=== PATIENT | female | born 1945 | race Caucasian/White ===

== ENCOUNTER → 2017-01-15 | Outpatient (CLI) | payer MEDICARE, OTHER ==
[~2017-01-15] MED LIST: ASPIR 8181 MG PO; ASPIRIN (CHILDR81 MG PO; ATIVAN 0.5MG0.5 MG PO; AUGMENTIN875 MG PO; BENADRYL25 MG PO; COLACE100 MG PO; COMBIVENT RESPIM4 GM INH; COUMADIN 4MG **4 MG PO; COZAAR100 MG PO; DECADRON4 MG PO; DELTASONE10 MG PO; DITROPAN XL10 MG PO; DITROPAN XL5 MG PO; FEOSOL325 MG PO; HYDRODIURIL25 MG PO; K-TAB 10MEQ10 MEQ PO; LEVOTHROID (SY88 MCG PO; LEXAPRO10 MG PO; LIPITOR80 MG PO; LOVENOX 8080 MG/0.8 SUB-Q; MEGARED OMEGA-1 EAC1 PO; MORPHINE 15MG I15 MG PO; MS CONTIN30 MG PO; NEURONTIN300 MG PO; NICODERM / HABIT7 MG TRANS; NICODERM/HABITR21 MG TRANS; NORCO 5-325 TA1 EACH PO; NORVASC5 MG PO; PERCOCET 5-3251 EACH PO; PRILOSEC20 MG PO; SENNA LAXATIVE1 EACH PO; TYLENOL325 MG PO; ULTRAM50 MG PO; WELLBUTRIN SR150 MG PO; XANAX0.25 MG PO
[2017-01-15 13:51] LABS: ALBUMIN 3.6 gm/dL (3.5-5.0); ANION GAP 11.9 (10.0-19.0); CALCIUM 9.4 mg/dL (8.5-10.5); CREATININE 1.6 mg/dL (0.5-1.1); PHOSPHORUS 3.3 mg/dL (2.5-4.9); POTASSIUM 3.9 mMol/L (3.7-5.1)
== END | disposition disaster alternative care site (69) ==
LOC: GOPD 01-07 → GRAD 12:51 → GOPD 13:00
PROVIDERS: Family Medicine
DX: R91.1 Solitary pulmonary nodule (principal)
CPT/HCPCS: J2001; J3010

== ENCOUNTER 2017-02-24 07:59 | Inpatient (IN) | payer MEDICARE, OTHER ==
[~2017-02-24] VITALS: Ht 154.9 cm; Wt 64.7 kg
--- NOTE | ~2017-02-24 | ENPV ---
Vascular Lower Extremities DVT Study Procedure Demographics Patient Name ANGEL JOHNSON Date of Study 02/24/2017 Patient Number [id number] Gender Female Date of 1945 Age 71 Visit Number [id number] Height Accession Number [id number] Weight Room Number G3222 BSA BMI Referring Angela Lawrence Interpreting Laura Cast Physician Physician Physician Ordering Physician Angela Rangel MD Supervisor [place] Phlebotomy Support Tech Marycruz Macias RDCS, RVT Al Khanna RVT, RDCS Conclusions Summary TECHNIQUE: The veins of the lower extremity on the left were evaluated from the groin to the ankle using sahu scale, compression, augmentation. Venous hemodynamics were evaluated with color flow and spectral Doppler. FINDINGS: Normal venous duplex study of the left lower extremity. There is no evidence of deep or superficial venous thrombosis. The right common femoral vein was imaged as well and found to be negative. IMPRESSION: NEGATIVE LEFT LOWER EXTREMITY VENOUS DOPPLER. Procedure Type of Study: Veins:Lower Extremities DVT Study, Lower Extremity Left. Indications for Study:Pain in Limb. Appropriate Use Criteria:9 Allergies - No known allergies. Patient Status:STAT. Study Location:ER. Technical Quality:Adequate visualization. Velocities are measured in cm/s ; Diameters are measured in cm Right Lower Extremities DVT Study Measurements Right 2D and Doppler Measurements + + + + +------+------+ + !Location !Visualized!Compressibility!Thrombosis!Signal!Reflux!Reflux ! ! ! ! ! ! ! !(sec) ! + + + + +------+------+ + !Common !Yes !Yes !None !Phasic! ! ! !Femoral ! ! ! ! ! ! ! + + + + +------+------+ + Left Lower Extremities DVT Study Measurements Left 2D and Doppler Measurements + + + + +------+------+ + !Location !Visualized!Compressibility!Thrombosis!Signal!Reflux!Reflux ! ! ! ! ! ! ! !(sec) ! + + + + +------+------+ + !GSV Thigh !Yes !Yes !None !Phasic! ! ! + + + + +------+------+ + !Common !Yes !Yes !None !Phasic! ! ! !Femoral ! ! ! ! ! ! ! + + + + +------+------+ + !Prox !Yes !Yes !None !Phasic! ! ! !Femoral ! ! ! ! ! ! ! + + + + +------+------+ + !Mid Femoral!Yes !Yes !None !Phasic! ! ! + + + + +------+------+ + !Dist !Yes !Yes !None !Phasic! ! ! !Femoral ! ! ! ! ! ! ! + + + + +------+------+ + !Popliteal !Yes !Yes !None !Phasic! ! ! + + + + +------+------+ + !Gastroc !Yes !Yes !None ! ! ! ! + + + + +------+------+ + !PTV !Yes !Yes !None ! ! ! ! + + + + +------+------+ + !Peroneal !Yes !Yes !None ! ! ! ! + + + + +------+------+ + Signature dtt: dtd: 02/24/17 0907 Physician Self Edit
--- NOTE | ~2017-02-24 | ER ---
PATIENT'S NAME: HAIM JOHNSONSY Tamanna [facility] AGE: 71 Y [address] ROOM: [place] [id number] LOCATION: [facility] ADMIT DATE: 02/24/2017 ER/Outpatient Report DISCHARGE DATE: FAMILY PHYSICIAN: Stefano Bain MD ATTENDING PHYSICIAN: Stefano Bain Time of Arrival: 0759 hours. Time of Evaluation: 0759 hours. IDENTIFICATION: A 71-year-old female. CHIEF COMPLAINT: Left leg pain. HISTORY OF PRESENT ILLNESS: The patient is a 71-year-old female, who has significant vascular disease. In June 2016, she had severe abdominal pain and was found to have a splenic infarct with celiac artery stenosis with no need for surgical intervention at that time, but she did have an interventional radiologist placed a stent in the celiac artery in September 2016 in [place]. She then had postop complications to include hematoma to the right lower extremity with a common femoral artery injury requiring repair. She has coronary artery disease with previous [place], hyperlipidemia, peripheral vascular disease, and hypertension. This particular leg pain started on February 02. No fall or injury. She has been seeing the chiropractor. She denies back pain. She denies bowel or bladder problems. She is vague on exactly where the pain hurts, but it is somewhere in her left thigh, radiates from her hip to her thigh. Again, no fall or injury. No numbness or tingling or weakness. ALLERGIES: NO KNOWN DRUG ALLERGIES. CURRENT MEDICATIONS: 1. Acetaminophen p.r.n. 2. Amlodipine 5 mg b.i.d. 3. Aspirin 81 mg daily. 4. Atorvastatin 80 mg daily. 5. Colace 100 mg t.i.d. 6. Combivent/Respimat 20/100 mcg 1 puff by mouth 4 times daily. 7. Hydrochlorothiazide 25 mg daily. 8. Levothyroxine 88 mcg daily. 9. Losartan 100 mg daily. 10. Nitroglycerin p.r.n. 11. Omeprazole 20 mg daily. [facility] 71 Y [address] ROOM: [address] [address] LOCATION: [facility] ADMIT DATE: 02/24/2017 ER/Outpatient Report DISCHARGE DATE: FAMILY PHYSICIAN: Stefano Bain MD ATTENDING PHYSICIAN: Stefano Bain 12. Oxybutynin 10 mg daily. 13. KCl 10 mEq 2 capsules daily. 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 PRIOR SURGERIES: Appendectomy, tonsillectomy, tubal ligation, colon resection, hernia repair, left knee surgery repair, right groin hematoma, and evacuation and repair of right femoral artery. SOCIAL HISTORY: The patient lives here in [place]. She is . Tobacco use, half pack per day. Alcohol use, denies. Drug use, denies. FAMILY HISTORY: Mother with diabetes. Sister with diabetes mellitus type 2. Father with heart disease. Uncle with heart disease. Mother with hypertension. REVIEW OF SYSTEMS: All systems reviewed and negative other than what is noted in the HPI. PHYSICAL EXAMINATION: VITAL SIGNS: Weight 68.9 kg, blood pressure 184/74, pulse 67, respirations 18, temperature 96.9, and saturations 98%. GENERAL: A 71-year-old female, in obvious distress with 10/10 pain. HEENT: Head: Normocephalic and atraumatic. Eyes: Pupils equal and reactive to light and accommodation. Extraocular movements intact. Nose: Mucosa pink. No lesions. Mouth: No lesions. Pharynx benign. NECK: Supple. No lymphadenopathy. LUNGS: Clear to auscultation. HEART: Regular rate and rhythm. ABDOMEN: Soft. Nondistended. Appears to be nontender. SKIN: [place], warm, and dry. No lesions or rashes noted. NEURO: No focal deficit. The patient is alert and oriented. She has no focal deficit. She has no tenderness to palpation of her hip or back. She has no reproducible tenderness on examination, although she is writhing with 10/10 pain. It seems to be pain out of proportion. She has good distal pulses. Sensation is intact. Both lower extremities are warm to touch. LABORATORY DATA AND X-RAYS: CT of her pelvis and left hip showed no acute findings, pending Radiology over- PATIENT'S NAME: ELIZABETH, ANGEL L [facility] AGE: 71 Y [address] ROOM: [address] [address] LOCATION: [facility] ADMIT DATE: 02/24/2017 ER/Outpatient Report DISCHARGE DATE: FAMILY PHYSICIAN: Stefano Bain MD ATTENDING PHYSICIAN: Stefano Bain read. Sodium 142; potassium 4.2; chloride 110; CO2 of 22; BUN 29; creatinine 1.6, which is stable; blood sugar 92; liver enzymes normal; CRP 0.81. Hemoglobin 13.2, hematocrit 40, platelets 339, and white count 8.7. Normal differential. Lactate is 1.3. Sedimentation rate 35. Procalcitonin less than 0.05. CT scan of abdomen and pelvis after given a 500 mL fluid bolus with her history of vascular disease revealed stable overall appearance. Lumbar spine CT without contrast showed degenerative changes at lumbar intervertebral levels, most pronounced at L5-S1 spinal stenosis with lateral recess and bilateral foraminal stenosis at L5-S1, borderline spinal stenosis at L3-L4 and L4-L5. The patient continued to have significant pain despite morphine 4 mg, Valium 1.5 mg, Dilaudid 0.25 mg, Percocet 5/325 one tablet, and an additional 2 mg of morphine. IMPRESSION: 1. Intractable left leg pain of uncertain etiology. 2. Peripheral vascular disease. 3. Spinal stenosis. PLAN: Admission per Dr. Bain, her primary care physician. KAHLIL PRINCE MD CAR/modl /[id number] d: 02/24/176 t: 02/25/17 1029, OUTPATIENT REPORT
--- NOTE | ~2017-02-24 | CON ---
PATIENT'S NAME: SHIVANI LEVIA [facility] AGE: 71 Y [address] ROOM: [address] [address] [place] [facility] ADMIT DATE: 02/24/2017 Consultation DISCHARGE DATE: FAMILY PHYSICIAN: Stefano Bain MD ATTENDING PHYSICIAN: Stefano Bain DATE OF CONSULTATION: 02/25/2017 CONSULT REQUESTED BY: Stefano Bain MD. REASON FOR CONSULT: Back and left leg pain. PATIENT IDENTIFICATION: Shivani Leiva is a 71-year-old female. PRESENTING COMPLAINT: Severe left leg pain. HISTORY OF PRESENT ILLNESS: The patient's symptoms began around the January. She had helped carry some luggage at the airport. The pain did not start immediately after that, but over the next several days, she started having left leg pain. The patient has been seen by chiropractor on two occasions without much improvement in the leg pain. She finally came to the ER and was admitted for pain control. I was consulted to see her to recommend further treatment. The pain goes down the left leg, and the patient is very uncomfortable in any position. She does not have significant back pain. It radiates on her right hip to her right thigh. There is no history of trauma other than the lifting at the airport three weeks ago. PAST MEDICAL HISTORY: The patient has a history of hypertension, gout, shingles, and non-small cell lung cancer recently diagnosed on February 08, 2017, biopsy pending. The patient also has peripheral vascular disease, tobacco abuse, and urinary incontinence. PAST SURGICAL HISTORY: The patient has had left knee repair surgery, colonic resection, tubal ligation, and appendectomy. SOCIAL HISTORY: PATIENT'S NAME: SHIVANI LEIVA [facility] AGE: 71 Y [address] ROOM: [address] [address] [place] [facility] ADMIT DATE: 02/24/2017 Consultation DISCHARGE DATE: FAMILY PHYSICIAN: Stefano Bain MD ATTENDING PHYSICIAN: Stefano Bain The patient lives here in town. She is . She smokes cigarettes, but does not consume alcohol in large amounts. FAMILY HISTORY: There is no family history of back or leg symptoms. REVIEW OF SYSTEMS: A 10-point review of systems was carried out. The only abnormal findings are as described in the history of present illness. PHYSICAL EXAMINATION: VITAL SIGNS: From chart, blood pressure 184/74, pulse rate 67. NEUROLOGIC: The patient is awake and alert. Her speech is clear. Cranial nerves: No deficits appreciated. Motor examination: The patient has antalgic weakness in the left leg making it very difficult to examine her. She was practically writhing in pain when I saw her. She has been on Dilaudid ESCORT SERVICE ATTENDANT, and this has improved some of the pain, but she is still quite anxious. CARDIOVASCULAR SYSTEM: Heart sounds are present. RESPIRATORY SYSTEM: The patient is not short of breath at bedside. EXTREMITIES: No cyanosis or clubbing. SKIN: No skin rashes or skin masses. HEAD: Head is atraumatic. Eyes and ears: No evidence of trauma. REVIEW OF IMAGING STUDIES: The patient had a CT lumbar spine before I saw her and after the initial evaluation, I requested a lumbar spine MRI. MRI was done this evening, and the main findings are degenerative changes, especially at L5-S1, asymmetric to the right-hand side. There is potential for impingement of the right S1 nerve root. There is also overall severe central canal stenosis at this level. IMPRESSION: A 71-year-old female with 3-week history of left leg pain. MRI shows spinal stenosis at L5-S1, greater on the right side than on the left side. The patient's pain is worse on the left side. MEDICAL DECISION MAKING: I discussed the situation with the patient and her . There is no indication for surgical intervention at this time because the patient has only had symptoms for about 3 weeks and we have not exhausted all nonsurgical measures as yet. It is also concerning that the side that has the worst stenosis, i.e., the right side is not the side where the patient has the most pain. Her pain is on the left side. Nevertheless, I have arranged for the patient to get lumbar epidural steroid injection. This will be performed by the nurse knife setter grinder machine tomorrow, February 26. If it is possible for the patient to go home after that, she will be released and I will follow her up in the PATIENT'S NAME: SHIVANI LEIVA [facility] AGE: 71 Y [address] ROOM: [place] [id number] [place]: [facility] ADMIT DATE: 02/24/2017 Consultation DISCHARGE DATE: FAMILY PHYSICIAN: Stefano Bain MD ATTENDING PHYSICIAN: Stefano Bain clinic to see how she is progressing. There is a very small chance that she may ultimately need surgery; however, it is too early at this point. PUJA HUDSON MD CNO/modl /[id number] CC: Stefano Bain MD d: 02/26/17 0120 t: 02/27/17 0911, CONSULTATION REPORT
[~2017-02-24 07:59] MED LIST changes: -DECADRON4 MG PO; -MORPHINE 15MG I15 MG PO; -MS CONTIN30 MG PO; -NEURONTIN300 MG PO; -PERCOCET 5-3251 EACH PO; -SENNA LAXATIVE1 EACH PO; -XANAX0.25 MG PO
[2017-02-24 08:33] LABS: BASOPHIL # 0.1 K/uL (0.0-0.2); BASOPHIL % 1.2 %; EOSINOPHIL # 0.5 K/uL (0.0-0.5); EOSINOPHIL % 5.2 %; HEMOGLOBIN 13.2 g/dL (10.0-15.0); IMMATURE GRANULOCYTE % 0.3 %; LYMPHOCYTE # 2.5 K/uL (0.8-4.0); LYMPHOCYTE % 28.7 %; MCH 29.9 pg (27.0-34.0); MCV 90.5 fl (83.0-98.0); MONOCYTE # 0.7 K/uL (0.0-1.0); MONOCYTE % 7.6 %; MPV 8.7 fl (9.4-12.4); NEUTROPHIL # (ANC) 4.9 K/uL (1.8-7.8); NRBC % 0 /100WBC (0-0.00); PLATELET COUNT 339 K/uL (150-450); RBC 4.42 M/uL (3.50-5.50); RDW-CV 12.9 % (11.9-14.6); WBC 8.7 K/uL (4.0-11.0)
[2017-02-24 08:53] LABS: ALBUMIN 3.8 gm/dL (3.5-5.0); ANION GAP 14.2 (10.0-19.0); CALCIUM 9.5 mg/dL (8.5-10.5); CREATININE 1.6 mg/dL (0.5-1.1); POTASSIUM 4.2 mMol/L (3.7-5.1); TOTAL BILIRUBIN 0.3 mg/dL (0.0-1.5); TOTAL PROTEIN 7.8 g/dL (6.0-8.4)
[2017-02-25 05:15] LABS: ANION GAP 12.2 (10.0-19.0); CALCIUM 8.7 mg/dL (8.5-10.5); CREATININE 1.5 mg/dL (0.5-1.1); POTASSIUM 4.2 mMol/L (3.7-5.1)
[2017-02-26] MEDS ORDERED: PERCOCET 5-3251 EACH PO (10:11)
[2017-02-26] MEDS ORDERED: XANAX0.25 MG PO (10:12)
== END 2017-02-26 17:20 | disposition disaster alternative care site (69) | DRG 552 ==
LOC: GMED 07:59 → GMSU 12:13
PROVIDERS: Family Medicine; ADMIT Family Medicine
PROC: 3E0233Z Introduction of Anti-inflammatory into Muscle, Percutaneous Approach (ICD-10-PCS; principal; 2017-02-26)
PROC: 3E023BZ Introduction of Anesthetic Agent into Muscle, Percutaneous Approach (ICD-10-PCS; 2017-02-26)
DX: M54.16 Radiculopathy, lumbar region (principal); J44.9 Chronic obstructive pulmonary disease, unspecified; I10 Essential (primary) hypertension; I25.10 Atherosclerotic heart disease of native coronary artery without angina pectoris; I25.2 Old myocardial infarction; E78.5 Hyperlipidemia, unspecified; I73.9 Peripheral vascular disease, unspecified; M10.9 Gout, unspecified; Z85.118 Personal history of other malignant neoplasm of bronchus and lung; F17.210 Nicotine dependence, cigarettes, uncomplicated; K27.9 Peptic ulcer, site unspecified, unspecified as acute or chronic, without hemorrhage or perforation
CPT/HCPCS: G0378; G8978; G8979; G8980; J1030; J1040; J1170; J2270; J2930; J3010; J3360; J7030; Q9967

== ENCOUNTER → 2017-03-05 | Outpatient (CLI) | payer MEDICARE, OTHER ==
[~2017-03-05] MED LIST changes: +DECADRON4 MG PO; +MORPHINE 15MG I15 MG PO; +MS CONTIN30 MG PO; +NEURONTIN300 MG PO; +PERCOCET 5-3251 EACH PO; +SENNA LAXATIVE1 EACH PO; +XANAX0.25 MG PO
== END | disposition disaster alternative care site (69) ==
LOC: GOPD 12:00 → GRAD 12:00
PROC: 3E0S33Z Introduction of Anti-inflammatory into Epidural Space, Percutaneous Approach (ICD-10-PCS; principal; 2017-03-05)
PROC: 3E0S3BZ Introduction of Anesthetic Agent into Epidural Space, Percutaneous Approach (ICD-10-PCS; 2017-03-05)
DX: M54.9 Dorsalgia, unspecified (principal); M48.06 Spinal stenosis, lumbar region; C34.90 Malignant neoplasm of unspecified part of unspecified bronchus or lung; I10 Essential (primary) hypertension; F17.210 Nicotine dependence, cigarettes, uncomplicated
CPT/HCPCS: J1040

== ENCOUNTER → 2017-03-30 | Outpatient (CLI) | payer MEDICARE, OTHER | END | disposition disaster alternative care site (69) | LOC: GKIC 11:29 | DX: C34.12 Malignant neoplasm of upper lobe, left bronchus or lung (principal); C10.4 Malignant neoplasm of branchial cleft; C34.2 Malignant neoplasm of middle lobe, bronchus or lung; C34.31 Malignant neoplasm of lower lobe, right bronchus or lung; C79.51 Secondary malignant neoplasm of bone; C78.01 Secondary malignant neoplasm of right lung; C78.1 Secondary malignant neoplasm of mediastinum; C79.89 Secondary malignant neoplasm of other specified sites; R91.8 Other nonspecific abnormal finding of lung field | CPT/HCPCS: A9552 ==

== ENCOUNTER → 2017-04-01 | Outpatient (CLI) | payer MEDICARE, OTHER | END | disposition disaster alternative care site (69) | LOC: GRAD 10:32 | DX: M79.652 Pain in left thigh (principal); C34.12 Malignant neoplasm of upper lobe, left bronchus or lung; M89.9 Disorder of bone, unspecified ==

== ENCOUNTER → 2017-04-08 | Outpatient (CLI) | payer MEDICARE, OTHER | END | disposition disaster alternative care site (69) | LOC: GRAD 12:06 | DX: C34.12 Malignant neoplasm of upper lobe, left bronchus or lung (principal); C79.51 Secondary malignant neoplasm of bone; C54.1 Malignant neoplasm of endometrium; C18.9 Malignant neoplasm of colon, unspecified; R22.0 Localized swelling, mass and lump, head; E87.6 Hypokalemia; E86.0 Dehydration | CPT/HCPCS: A9577 ==

== ENCOUNTER → 2017-04-30 | Outpatient (CLI) | payer MEDICARE, OTHER | END | disposition disaster alternative care site (69) | LOC: GRAD 15:17 | DX: C34.92 Malignant neoplasm of unspecified part of left bronchus or lung (principal); C79.31 Secondary malignant neoplasm of brain ==

== ENCOUNTER 2017-05-06 15:01 | Inpatient (IN) | payer MEDICARE, OTHER ==
[~2017-05-06] VITALS: Ht 154.9 cm; Wt 60.2 kg
--- NOTE | ~2017-05-06 | ER ---
PATIENT'S NAME: ANGEL JOHNSON [facility] AGE: 71 Y [address] ROOM: [place] [address] LOCATION: [facility] ADMIT DATE: 05/06/2017 ER/Outpatient Report DISCHARGE DATE: FAMILY PHYSICIAN: Stefano Bain MD ATTENDING PHYSICIAN: PATIENCE BRYANT TIME OF ARRIVAL: 1502 hours. TIME OF EVALUATION: 1502 hours. CHIEF COMPLAINT: Weakness. HISTORY OF PRESENT ILLNESS: The patient is a 71-year-old female who presents to the emergency department today with a chief complaint of weakness and cough. She reports this started 3 days prior to arrival. The patient is accompanied by her daughter and . The patient reports she has had a nonproductive cough for about 3 days that has progressively worsened. Her family reports that she had refused to go to the hospital until very recently. Denies any fevers or chills. No nausea or vomiting. No diarrhea or constipation. The patient does have some bright red blood from an external hemorrhoid noted by . He does report it is a small amount. The patient does have non-small cell cancer with metastasis and has been undergoing radiation therapy to her leg. She does complain of pain all over. She does have chronic pain from these metastases. Pain is currently sharp. It is 8/10 in severity. The family does report that the patient had a good day Thursday and has just gone downhill since. 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 PAST SURGICAL HISTORY: Colon resection, knee, appendectomy, tonsillectomy, celiac artery, colostomy, stent to the celiac artery, multiple hernia repairs, and tubal ligation. SOCIAL HISTORY: The patient had smoked for about 40 years, approximately half a pack a day. Denies any alcohol or illicit drug use. She is . PATIENT'S NAME: HAIM JOHNSONSY Tamanna [facility] AGE: 71 Y [address] ROOM: [place] [address] LOCATION: [facility] ADMIT DATE: 05/06/2017 ER/Outpatient Report DISCHARGE DATE: FAMILY PHYSICIAN: Stefano Bain MD ATTENDING PHYSICIAN: PATIENCE BRYANT FAMILY HISTORY: Stroke, hypertension, and COPD. ALLERGIES: NO KNOWN DRUG ALLERGIES. CODEINE CAUSES VOMITING. MEDICATIONS: Please see list. REVIEW OF SYSTEMS: All systems are reviewed by myself and are negative with the exception of those discussed in the HPI and Past Medical History. PHYSICAL EXAMINATION: VITAL SIGNS: Weight 59.4 kg. Blood pressure 97/54, pulse 117, respiratory rate 18, temperature 100.3, and oxygen saturation 87% on 4 L nasal cannula. GENERAL: The patient is a 71-year-old female, appears stated age, in acute respiratory distress. HEENT: Head is normocephalic and atraumatic. Pupils are equal, round, and reactive to light and accommodating. Mucous membranes are dry. NECK: Supple. There is no nuchal rigidity. CARDIOVASCULAR: Tachycardic. No murmurs, rubs, or gallops. LUNGS: Coarse breath sounds bilaterally. Tachypnea. In moderate respiratory distress. ABDOMEN: Soft, nontender, and nondistended. No rebound, rigidity, or guarding. MUSCULOSKELETAL: The patient moves all 4 extremities. SKIN: Warm and dry. LABORATORY AND X-RAY DATA: EKG was obtained, is interpreted by myself at 1510 hours. It shows sinus tachycardia with a rate of 112, normal axis, normal interval. No obvious ST elevation, ST depression, or Q-wave inversions. CBC: White blood cell count 3.2 and platelets 101. Otherwise, unremarkable. Venous blood gas 7.32/36/73/19/-6.9. Lactate is 3.5. Coags are normal. Chest x-ray shows a right lower lobe opacity. CMP remarkable for chloride of 112, CO2 of 18, BUN 89, creatinine 2.9, and glucose 133. Alkaline phosphatase 111, AST is 723, and ALT is 756. CK is 240, CK-MB is 6.1, and troponin 0.1. ProBNP is 9968. D-dimer is 13. Procalcitonin is 12.5. IMPRESSION: 1. Septic shock due to community-acquired pneumonia. 2. Acute hypoxic respiratory failure due to pneumonia and non-small cell cancer of the lung. 3. Acute renal failure. PATIENT'S NAME: ANGEL JOHNSON [facility] AGE: 71 Y [address] ROOM: [address] [place], [place] [address] LOCATION: [facility] ADMIT DATE: 05/06/2017 ER/Outpatient Report DISCHARGE DATE: FAMILY PHYSICIAN: Stefano Bain MD ATTENDING PHYSICIAN: PATIENCE BRYANT 4. History of venous thromboembolism and elevated D-dimer. 5. Elevated liver enzymes. 6. Elevated troponin, suspect secondary to septic shock due to community- acquired pneumonia. 7. Elevated proBNP. 8. Sepsis time zero 1523 hours. 9. Critical care time 48 minutes. 10. Initial visit. EMERGENCY DEPARTMENT COURSE: The patient was brought back to the examination room. Seen immediately upon arrival by myself. Bilateral IVs are obtained. The patient is undergoing a nebulized breathing treatment upon arrival here in the emergency department. The patient is placed on BiPAP 12/5. FiO2 is at 100%. Apparently, the patient's initial saturations were in the 70s, noted by EMS. On 4 L nasal cannula, the patient is 85% to 86%. Upon placement of the BiPAP and 100% FiO2, the patient is saturating 98%. Laboratory analysis and imaging are obtained as described above. The patient is given 2 DuoNeb breathing treatments back to back in line with the BiPAP. Chest x-ray does reveal evidence of pneumonia. The patient is given 2 L of normal saline IV bolus. She is initiated on broad-spectrum antibiotics, Zosyn IV as well as Levaquin and vancomycin. The patient's blood pressures remained marginal throughout that time. I did discuss the case with Dr. Hayley Wiggins, who is on-call for the patient's primary care doctor, Dr. Bain, and discussed the case with her. She will see the patient as well, but as the patient has had marginal blood pressures, she will require ICU admission. I have contacted the Hospitalist Service, Dr. Bryant, and discussed the case with Dr. Bryant. She has seen and evaluated the patient down here in the emergency department. We have had a discussion with the patient's daughter and about central line placement. They do wish to proceed. The risks and benefits are discussed with the daughter and . Verbal consent is obtained due to the severity of the patient's illness. Central line was placed by myself. Prep: The patient's right internal jugular was prepped and draped in the usual sterile fashion. Anesthesia 1% lidocaine without epinephrine was used for local infiltration. Technique: A triple-lumen central line was introduced over a wire via the Seldinger technique and was sutured into place. There was no pulsatile blood flow noted. There was good blood flow from all the ports. Blood loss was minimal. Chest x-ray was ordered to assess for pneumothorax and catheter placement. These were appropriate, and no evidence of pneumothorax was noted. Complications: None. The patient's family does report that the patient is a do not resuscitate/do not intubate patient. She is maintained on BiPAP. Her FiO2 is weaned down to the 70% range with oxygen saturation 95% to 98%. The laboratory analysis is reviewed with both the patient and her and daughter. The patient is initially fluid responsive and has maintained her blood pressures; however, they are trending PATIENT'S NAME: ANGEL JOHNSON [facility] AGE: 71 Y [address] ROOM: [address] [address] LOCATION: [facility] ADMIT DATE: 05/06/2017 ER/Outpatient Report DISCHARGE DATE: FAMILY PHYSICIAN: Stefano Bain MD ATTENDING PHYSICIAN: PATIENCE BRYANT. She is initiated on Levophed drip. This is to titrate to a MAP of 65. She was given 25 mcg of fentanyl IV for her pain. The patient did require a cumulative critical care time of 48 minutes. This is time that does not include central line placement. This time did include talking with family about the family's wishes as well as management plans, talking with multiple consultants, ordering tests, reviewing tests, as well as close monitoring of the patient with septic shock requiring multiple re-evaluations, multiple discussions with family, and multiple different antibiotics. Levophed was ordered to keep MAP greater than 65. The patient was in the emergency department for greater than 3-1/2 hours. DISPOSITION: The patient is admitted under the care of the Hospitalist Service and Dr. Bryant to the intensive care unit in guarded condition. DO JERSON OCHOA/modl /[id number] d: 05/07/17 1154 t: 05/07/17 1439, OUTPATIENT REPORT
--- NOTE | ~2017-05-06 | CON ---
PATIENT'S NAME: ANGEL JOHNSON [facility] AGE: 71 Y [address] ROOM: [place] [id number] LOCATION: [facility] [place] ADMIT DATE: 05/06/2017 Consultation DISCHARGE DATE: FAMILY PHYSICIAN: Stefano Bain MD ATTENDING PHYSICIAN: PATIENCE BRYANT DATE OF CONSULTATION: 05/07/2017 REFERRING PHYSICIAN: Patience Bryant MD REASON FOR CONSULT: Rectal wounds. HISTORY OF PRESENT ILLNESS: This is a 71-year-old female patient who was admitted to [facility] [place] with severe sepsis. I saw the patient last in December for a right groin wound. 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 She had been undergoing radiation to her left femur. She has not had any chemotherapy agents for her lung cancer. She notes pain to her rectum. She is unable to tell me how long she has had the ulcers. No treatment was applied to site. She is not incontinent of urine or stool. She is on BiPAP treatment and appears very restless and anxious. She does remember who I am. She denies further skin issues. She reports she just received some morphine; however, is still complaining of generalized pain. She is currently n.p.o. PAST MEDICAL HISTORY: 1. Peripheral vascular disease. 2. Ileus. 3. Gout. 4. Hypertension. 5. Hel-wjfpn-uoxi lung cancer with metastases to brain and bone. 6. Coronary artery disease. 7. Hypothyroidism. 8. Depression. 9. Acute blood loss anemia. 10. Osteoarthritis. 11. Diverticulitis. PAST SURGICAL HISTORY: 1. Appendectomy. 2. Tonsillectomy. 3. Tubal ligation. 4. Colon resection. 5. Hernia repair. PATIENT'S NAME: ANGEL JOHNSON [facility] AGE: 71 Y [address] ROOM: [place] [address] LOCATION: [facility] [place] ADMIT DATE: 05/06/2017 Consultation DISCHARGE DATE: FAMILY PHYSICIAN: Stefano Bain MD ATTENDING PHYSICIAN: PATIENCE BRYANT 6. Left knee arthroplasty x2. 7. Evacuation of a hematoma to the right groin with repair of a puncture to the right common femoral artery. FAMILY HISTORY: Father of an [place]. Mother suffered from CHF. SOCIAL HISTORY: The patient lives with her in [place], [place]. She quit smoking in September 2016. ALLERGIES: CODEINE. CURRENT MEDICATIONS: Please refer to the medication administration record. REVIEW OF SYSTEMS: Unable to fully complete due to the acuity of illness and patient trying to fight the BiPAP. Please see HPI for further details. PHYSICAL EXAMINATION: VITAL SIGNS: Temperature was 99.1, pulse was 72, respirations were 19, blood pressure was 132/64, and pulse oximetry was 94% on BiPAP. Height is 5 feet 1 inch and weight is 60.0 kg. GENERAL: The patient appears anxious and in slight distress once her BiPAP is off. HEENT: Normocephalic and atraumatic. Anicteric sclerae. EXTREMITIES: No edema was. Feet were slightly cool to touch. +1 thready pedal pulses at best. Toenails are painted, unable to perform capillary refill. SKIN: Rectal ulcers were noted from the 3 o'clock to 9 o'clock area around her anus. Ulcers are moist pink. They have a linear cluster pattern. No vesicles. Blanchable redness to periwound. Small serous exudate. Very painful to touch. LABORATORY DATA: White blood cell count was 3.3, hemoglobin was 10.8, hematocrit was 32.9, and platelets were 60. Sodium of 143, potassium of 4.6, chloride of 117, bicarb of 16, BUN of 75, creatinine of 2.3, glucose of 141, and albumin of 1.9. TSH was 5.900. CPK is 254, CK-MB is 6.2, and troponin I is 0.113. Procalcitonin was 31.47. ASSESSMENT AND PLAN: Again, this is a 71-year-old female patient who was admitted to [facility] PATIENT'S NAME: ANGEL JOHNSON [facility] AGE: 71 Y [address] ROOM: [address] [address] LOCATION: [facility] [place] ADMIT DATE: 05/06/2017 Consultation DISCHARGE DATE: FAMILY PHYSICIAN: Stefano Bain MD ATTENDING PHYSICIAN: [facility] with severe sepsis and pneumonia. Wound Care consult to evaluate rectal wounds. 1. Rectal wounds. Possible concern for herpes zoster. The patient does have a history of chicken pox. She notes she received the shingles vaccine. She notes extreme pain to the site. She is unable to tell me about the clinical course or when symptoms started. No treatment is being applied to the site. Palliative Care is in the room and family is requesting conservative measures. No treatment is needed at this time. I briefly updated Dr. Schneider. 2. Severe sepsis with shock. Hospitalist is managing. 3. Acute respiratory failure with hypoxia, likely related to pneumonia secondary to kkp-ftcib-aypb lung cancer. Pulmonology is on board. 4. Acute renal failure. I would like to thank Dr. Bryant for this consult. Unfortunately, this appears to be a patient with a poor clinical course and outcome. RICO SMITH APRN FOR MD THERESE FLOWERS/modl /[id number] d: 05/07/172018 t: 05/16/17 1301, CONSULTATION REPORT
--- NOTE | ~2017-05-06 | DS ---
PATIENT'S NAME: ANGEL JOHNSON [facility] AGE: 71 Y [address] ROOM: [address] [address] LOCATION: [facility] [place] ADMIT DATE: 05/06/2017 Discharge Summary DISCHARGE DATE: 05/09/2017 FAMILY PHYSICIAN: Stefano Bain MD ATTENDING PHYSICIAN: Beverly Bryant FINAL DIAGNOSES: 1. Gram-negative septic shock. 2. Acute hypoxic respiratory failure. 3. Acute kidney injury. 4. Omt-dsuia-ofnz lung cancer, stage IV. HOSPITAL COURSE: The patient presented to the Emergency Room with chief complaints of being weak and cough. Her symptoms had started three days prior to admission. In the Emergency Room, she was found to be septic. She was initiated on IV antibiotics, and she did require BiPAP. She was subsequently admitted into the Intensive Care Unit, where the safety patrol officer was asked to see her as well as Cardiology. She was given aggressive IV hydration. She was started on IV Zosyn, IV Levaquin, and was given vancomycin. An echocardiogram was obtained. The second morning after admission, the patient with her and daughter present, did relate to me that she would want to go comfort measures. All of her medications were stopped. She was initiated on the comfort care order set, which included medications for secretion, pain, and air hunger. She was started on a morphine TEMPERATURE LOGGING OPERATOR to keep her pain under control. She was moved out of the Intensive Care Unit into the Medical Surgical Unit. As it was necessary, her morphine was elevated. She did pass on May 09, 2017. SANDRA STRICKLAND MD LAW/modl /[id number] d: 06/04/177 t: 06/17/17 1105, DISCHARGE SUMMARY
--- NOTE | ~2017-05-06 | CON ---
PATIENT'S NAME: ANGEL JOHNSON [facility] AGE: 71 Y [address] ROOM: [address] [address] LOCATION: [facility] [place] ADMIT DATE: 05/06/2017 Consultation DISCHARGE DATE: FAMILY PHYSICIAN: Stefano Bain MD ATTENDING PHYSICIAN: PATIENCE SWIFT DATE OF CONSULTATION: 05/07/2017 REASON FOR CARDIOLOGY CONSULT: Elevated cardiac enzymes. HISTORY OF PRESENT ILLNESS: This is a 71-year-old female who recently has been diagnosed with non-small cell lung cancer with noted brain and bone metastases. She has been undergoing radiation therapy to her left femur for palliative pain management and there were plans to proceed with brain radiation within this next week. She was brought to the emergency department by her daughter for complaints of cough and shortness of breath. Of note, the patient is a DNR/DNI and wants to know of invasive treatments at this time, but she did agree to BiPAP. At the time of this consult, she is resting in the intensive care unit on BiPAP. She is difficult to arouse, but will awaken to stimuli. Once again, does go back to sleep quickly. History is reviewed from chart evaluation as well as speaking with the patient's daughter. 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 She was subsequently started on heparin drip, but was unable to undergo a CT for PE evaluation due to her renal function as well as a V/Q scan not being able to be completed due to her lung tumor. There are plans to perform a noncontrast chest CT today to evaluate her lung tumor as it appears larger on chest x-ray than previously. No noted history of complaints of chest pain. She does have a history of previous catheterization with noted nonobstructive coronary artery disease. PAST MEDICAL HISTORY: As listed in the HPI as well as hypertension, gout, hypothyroidism, and history of a right thigh hematoma after a laceration of the right femoral artery. PAST SURGICAL HISTORY: 1. Stenting to the celiac artery in 2016. 2. Multiple hernia repairs. 3. Tubal ligation. 4. Appendectomy. 5. Colostomy after a colon perforation 15 years ago secondary to diverticular disease. [facility] 71 Y [address] ROOM: [id number] [place], [place] [address] LOCATION: [facility] [place] ADMIT DATE: 05/06/2017 Consultation DISCHARGE DATE: FAMILY PHYSICIAN: Stefano Bain MD ATTENDING PHYSICIAN: PATIENCE SWIFT FAMILY HISTORY: The patient's mother at age of 82 due to a stroke. Her mother also had a history of hypertension. Her father is assumed to have due to myocardial infarction at a young age. She has 3 sisters, all of whom have due to COPD. SOCIAL HISTORY: The patient was a current daily cigarette smoker up until a few weeks ago. She smoked for a total of 40 years and a half a pack per day during those times. No notation of alcohol or illicit drug use. CURRENT MEDICATIONS: 1. Levophed drip and vasopressin drip for hypotension. 2. Heparin drip per PE protocol. 3. NovoLog subcu on a mild sliding scale per q.6 hour Accu-Cheks. 4. Vancomycin 750 mg IV every 48 hours. 5. Zosyn 3.375 g IV every 12 hours. MEDICATION ALLERGIES: Codeine causing nausea. REVIEW OF SYSTEMS: Pertinent positive review of systems listed in the HPI. All other review of systems are evaluated and negative. DIAGNOSTICS: Echocardiogram shows an estimated left ventricular ejection fraction of 60% to 65%. There is a mildly dilated left atrium with normal right ventricular structure and function. Mild pulmonary hypertension with an RVSP of 46 mmHg and mild tricuspid regurgitation. She has a D-dimer level of 13.28 and a procalcitonin of 31.47. CMS evaluation shows a sodium of 143, potassium 4.6, BUN of 75, creatinine 2.3, and a glucose of 141. ABG result shows a pH of 7.25, pCO2 of 38, and a bicarb of 16.7. She had a lactate level of 1.9. She has a cardiac enzyme trend so far of a CPK of 240, then 312, then 249; CK-MB of 6.1, then 6.1, then 5.5; and troponin I of 0.1, then 0.219, then 0.188. PHYSICAL EXAMINATION: VITAL SIGNS: Temperature 99.1, pulse 72, respirations 19, blood pressure 132/64, O2 saturation 92% on 40% BiPAP. The patient weighs 60 kg. SKIN: [place], warm, and dry except for some minor scattered ecchymosis. EYES: Sclerae clear. No xanthelasma. ENT: Oral mucosa is pink and moist. No jugular vein distention or carotid bruits. PATIENT'S NAME: ANGEL JOHNSON [facility] AGE: 71 Y [address] ROOM: [place] [address] LOCATION: [facility] [place] ADMIT DATE: 05/06/2017 Consultation DISCHARGE DATE: FAMILY PHYSICIAN: Stefano Bain MD ATTENDING PHYSICIAN: PATIENCE SWIFT CHEST: Respirations are even but labored. LUNGS: Sounds show coarse crackles throughout lung juarez. HEART: Regular rate and rhythm. Normal S1 and S2. ABDOMEN: Soft to mildly firm. Bowel sounds are present x4 quadrants. MUSCULOSKELETAL: Unable to fully assess due to the patient's inability to follow commands for an extended period of time due to lethargy. EXTREMITIES: Peripheral pulses palpable. No clubbing or cyanosis noted. Does have trace lower extremity edema present. PSYCHIATRIC: Lethargic and difficult to arouse, but will open eyes to stimulus. IMPRESSION AND PLAN: Per Dr. García: 1. Niv-XO-cmflwcow myocardial infarction. Likely due to supply-demand mismatch. Her echocardiogram shows a preserved ejection fraction. 2. Metastatic lung cancer. 3. Gram-negative sepsis. 4. Congestive heart failure. 5. Acute hypoxic respiratory failure. 6. Thrombocytopenia. 7. Acute kidney injury. Plan of care discussed with Dr. Schneider of the Hospitalist Service and plan is to proceed with comfort cares for this patient. We do thank the Hospitalist Service for this consult and will be available for any further questions or concerns. Thank you for allowing [facility] to interact in the care of this patient. JOSH GUADALUPE APRN FOR PANCLAUDIOOTIS-MD YELENA CONDE/kristy /[id number] d: 05/07/17 2209 t: 05/19/17 0820, CONSULTATION REPORT
--- NOTE | ~2017-05-06 | ECHO ---
Transthoracic Echocardiography Report (TTE) Demographics Patient Name ANGEL JOHNSON Date of Study 05/07/2017 Patient Number [id number] Visit Number [id number] Date of 1945 Room Number G6215 Gender Female Number Age 71 year(s) Referring Manny Paul MD Endodontics Dentist Lupis López, Physician RT,RVT,RDCS Physician Interpreting Raquel Sanders Insurance Agency Sales Manager Physician A Supervising Ordering Manny Paul MD, MD/MLP Physician Nurse Stress Tool Specialist Conclusions Contractility Score Summary Normal Left Ventricular contractility was noted. Summary The estimated left ventricular ejection fraction is 60-65%. The left atrium is mildly dilated by LA volume index measurement. Normal right ventricle structure and function. There is mild pulmonary hypertension. The pulmonary pressure (RVSP) is 46 mmHg. Mild tricuspid regurgitation by color Doppler. Procedure Type of Study TTE procedure:2D Echocardiogram, M-Mode, Doppler , Color Doppler. Procedure Date Date: 05/07/2017 Start: 07:14 AM Study Location: Inpatient Portable Technical Quality: Adequate visualization Indications:Dyspnea/SOB. Additional Indications:Pneumonia, severe sepsis. Appropriate Use Criteria: 9 Patient Status: Routine HR: 77 bpm BP: 121/61 mmHg Allergies - No known allergies. M-Mode/2D Measurements LV Diastolic Dimension: 4.85 cm LV Systolic Dimension: 3.03 cm LV Septum Diastolic: 0.92 cm LV Septum Systolic: 1.54 cm LV PW Diastolic: 0.98 cm LV PW Systolic: 1.47 cm Cardiac Output: 6.24 l/min AO Root Dimension: 2.9 cm RV Diastolic Dimension: 2.17 cm LA Dimension: 3.2 cm EF Estimated: 70 % LA volume: 48 ml LVOT: 2.1 cm LVOT VTI: 23.4 cm LV Stroke volume: 81.01 ml Doppler Measurements AV Peak Velocity: 1.33 m/s MV Peak E-Wave: 0.89 m/s AV Peak Gradient: 7.08 mmHg MV Peak A-Wave: 1.07 m/s AV Mean Gradient: 3 mmHg MV E/A Ratio: 0.83 LVOT Peak Velocity: 1.17 m/s MV P1/2t: 52 msec TR Gradient:36.48 mmHg PV Peak Velocity: 0.7 m/s Estimated RAP:10 mmHg PV Peak Gradient: 1.98 mmHg Estimated RVSP: 46 mmHg Estimated PASP: 46.48 mmHg E' Septal Velocity: 0.07 m/s A' Septal Velocity: 0.09 m/s MV E/E' Ratio: 13.5 Findings Left Ventricle Normal left ventricle size and function. Possible mild septal hypokinesis Right Ventricle Normal right ventricle structure and function. Left Atrium The left atrium is mildly dilated by LA volume index measurement. Right Atrium Normal right atrial size. Mitral Valve Normal mitral valve structure and function. Aortic Valve Normal aortic valve structure and function. Tricuspid Valve There is mild pulmonary hypertension. The pulmonary pressure (RVSP) is 46 mmHg. Mild tricuspid regurgitation by color Doppler. Pulmonic Valve Normal pulmonic valve structure and function. Pericardial Effusion No evidence of pericardial effusion. Miscellaneous Visualized portions of the aortic root and ascending aorta appear normal in size. Pleural Effusion No evidence of pleural effusion. Contractility Score LV regional wall motion:(0-Non visualized 1-Normal 2-Hypokinesis 3-Akinesis 4-Dyskinesis 5-Aneurysm) Signature dtt: Simone García dtd: 05/07/17 0714 Physician Self Edit
--- NOTE | ~2017-05-06 | HP ---
PATIENT'S NAME: ANGEL LEIVA [facility] AGE: 71 Y [address] ROOM: [address] [place], [place] [address] LOCATION: [facility] ADMIT DATE: 05/06/2017 History & Physical DISCHARGE DATE: FAMILY PHYSICIAN: Stefano Bain MD ATTENDING PHYSICIAN: PATIENCE SWIFT DATE OF SERVICE: 05/06/2017 CHIEF COMPLAINT: Generalized weakness and cough. HISTORY OF PRESENT ILLNESS: Ms. Leiva is a 71-year-old female, who was diagnosed with non- small cell lung cancer by biopsy on 01/16/2017. She was subsequently found to have brain and bone metastases. The metastasis to the left femur has been particularly painful, and she has been undergoing radiation to this. She has not had any other chemotherapy or other treatments yet for the lung cancer. She had been tending toward less intervention and in fact, did not want to come to hospital today but is brought by her . Over the past week, she has had severe pain in the leg causing increasingly poor appetite adding to the problem with weight loss that she has had. She developed cough and was brought to the emergency room today. On arrival she did have increased respiratory rate, increased heart rate. She was afebrile. When her labs were returned, she had multiple abnormalities including leukopenia, elevated lactate and procalcitonin, elevated BUN and creatinine, elevated liver functions, elevated troponin. I was notified by the ER physician. He was concerned that the patient may not even want to have a central line placed, so we could adequately treat what appears to be severe sepsis. I spoke at length, obtained history from the family members, who were at the bedside in the emergency room which was Mr. Francois Leiva, her , and her daughter, Akiko Taylor. Although the patient does not want to be intubated and does not want to be resuscitated, and she agreed to central line placement and attempts to treat this acute sepsis episode. Dr. Elmore, her oncologist also gave some history verbally to me by phone. The patient was started on broad-spectrum antibiotics according to the sepsis protocol and had a stable blood pressure in the systolic above 100 prior to leaving the ER. She was admitted to the ICU for further evaluation and management. PAST MEDICAL HISTORY: 1. She had an ileus on January 21, 2017, was hospitalized and treated for that. She had a history of colon perforation 15 years ago secondary to PATIENT'S NAME: ANGEL LEIVA [facility] AGE: 71 Y [address] ROOM: [id number] [place], [place] [address] LOCATION: [facility] ADMIT DATE: 05/06/2017 History & Physical DISCHARGE DATE: FAMILY PHYSICIAN: Stefano Bain MD ATTENDING PHYSICIAN: PATIENCE SWIFT severe diverticular disease and had large colon resection at that time. 2. 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 Her daughter thinks that she did have an CA with mild coronary artery disease, somewhere in the last several years, it is not exactly clear. Apparently Dr. Bates catheterized her several years ago showing nonobstructive cardiac disease and those records are unavailable at this time. 3. Gout. 4. Hypertension. 5. Urinary incontinence. 6. Central canal stenosis at the level of L5-S1 diagnosed in February 2017. 7. Right thigh hematoma status post laceration of the right femoral artery. 8. Hypothyroidism. PAST SURGICAL HISTORY: 1. Jeremías's patch with diverting colostomy which was closed in the distant past. 2. Stent to the celiac artery on 09/29/2016. 3. Multiple hernia repair. 4. Status post abdominal surgery. 5. She had steroid injection to the lumbar spine in February 2017. 6. She has had tubal ligation. 7. Appendectomy. SOCIAL HISTORY: She is for 20 years to Mr. Leiva. She has three children from previous marriage, two sons and her daughter. She is retired. She smokes 4-5 cigarettes a day up until a couple weeks ago. She smoked for about 40 years, always less than half pack a day. Her is her medical power-of- contract attorney. It should be in her medical record. She does wish to be no CPR and no intubation. FAMILY HISTORY: Her mother at age 82 of a stroke. She had a history of hypertension. Her father at a young age, presumably CA. She has had 3 sisters, who of COPD but not cancer. ALLERGIES: NO TRUE ALLERGIES TO ANTIBIOTICS. SHE DOES HAVE AN ADVERSE REACTION TO CODEINE WHICH IS SEVERE VOMITING. MEDICATIONS: 1. Tylenol 325 mg 2 tabs every 4 hours p.r.n. pain. 2. Amlodipine 5 mg p.o. b.i.d. 3. Lipitor 80 mg p.o. daily. PATIENT'S NAME: ANGEL LEIVA [facility] AGE: 71 Y [address] ROOM: [place] [address] LOCATION: [facility] ADMIT DATE: 05/06/2017 History & Physical DISCHARGE DATE: FAMILY PHYSICIAN: Stefano Bain MD ATTENDING PHYSICIAN: PATIENCE SWIFT 4. Decadron 4 mg p.o. twice daily, started earlier this month in preparation for brain radiation. 5. Colace 2 caps p.o. b.i.d. 6. Neurontin 300 mg p.o. nightly, but she did not tolerate that due to altered mental status. 7. HydroDIURIL 25 mg p.o. daily. 8. Combivent inhaled 4 times p.r.n. dyspnea. 9. Levothyroxine 88 mcg q.h.s. 10. Morphine sulfate MS Contin tabs 30 mg every 12 hours p.o. immediate release. 11. Morphine 1-2 tabs every 4 hours p.r.n. 12. Prilosec 20 mg p.o. q.h.s. 13. Ditropan XL 24 hour tablet 10 mg p.o. at h.s. 14. Potassium 10 mEq p.o. b.i.d. 15. Senna 2 tabs b.i.d. REVIEW OF SYSTEMS: Positive for the difficulty with ileus, it has been chronic and worsening with her decreased intake. She has had a 50-pound weight loss probably over the past year and 40 of that in the last 6 months. She has had a cough, decreased appetite, decreased taste, very poor intake, thrush after she started steroids. During this radiation to her left femur, she is having increasingly severe pain. She does have hemorrhoids, but denies diarrhea. She has had a small amount of sputum, very dry mouth, indigestion. Neurologically, she reports some confusion times last week with pain medications and this stopped her gabapentin. She denies urologic symptoms. She has been weak and not walking since Thursday. Skin is broken down in the gluteal fold and somewhat tender. The remainder of a 12-point review of systems which has been reviewed with the family is unable to be ascertained other than what they are able to tell me due to the patient being on BiPAP. PHYSICAL EXAMINATION: GENERAL: This is a well-developed female, who is in no acute duress on the BiPAP in the emergency room when I examined her. HEENT: Normocephalic, atraumatic. Her pupils are equal, difficult to assess reactivity. Sclerae anicteric. The oropharynx is dry with natural teeth in fairly good condition. Tongue is pale. There is no redness or exudate. NECK: Supple without lymphadenopathy. There is no supraclavicular lymphadenopathy. LUNGS: Coarse bilaterally with tachypnea. CARDIOVASCULAR: Regular rate and rhythm. I do not appreciate a murmur. ABDOMEN: Full and slightly firm with normal bowel sounds, mildly tender. No specific mass. EXTREMITIES: There is no edema and very poor tissue turgor. Feet are cool. The toes are ischemic. There are petechiae on the left upper arm. Her skin PATIENT'S NAME: ANGEL LEIVA [facility] AGE: 71 Y [address] ROOM: [place] [address] LOCATION: [facility] ADMIT DATE: 05/06/2017 History & Physical DISCHARGE DATE: FAMILY PHYSICIAN: Stefano Bain MD ATTENDING PHYSICIAN: PATIENCE SWIFT is generally cool, but the radial pulses are 1 to 2+. Dorsalis pedis pulses are not palpable. The patient is moving all extremities. She is able to grasp my hand and move dorsiflexion and plantarflexion. NEUROLOGIC: She is able to answer questions and follow commands. She is oriented to place and time. LABORATORY DATA: ABG, pH 7.32, CO2 of 36, O2 of 73, bicarb 18.5. Lactate 3.5. On repeat, 3 hours later, pH 7.25, CO2 of 38, O2 of 172, bicarb 16.7, bicarb 18 on 70% BiPAP. Complete metabolic panel shows sodium 140, potassium 4.9, chloride 112, CO2 of 18, glucose 133, calcium 9.4, BUN 89, creatinine 2.9, total protein 6.5, albumin 2.1, globulin 4.4, total bilirubin 0.6, alkaline phosphatase 111. AST 723, ALT 756, EGFR is 16. CPK is 240, CK-MB 6.1, troponin was 0.10, and repeat troponin was 0.219, CK-MB 6.1, CPK 312. Her D- dimer was 13.28, her procalcitonin was 12.47. Her complete blood count showed a white blood cell count of 3.2, hemoglobin 12.8, hematocrit 39.2, MCV 95.1, platelets 101. Absolute neutrophil count of 2.46, 74%; bands 19%, lymphocytes 3, monos 4. Lactate repeat at 1815 hours was 1.9. RADIOGRAPHIC STUDIES: Chest x-ray showed large mass in the left upper lung and a mass like structure in the mid right lung which is new from CT scan of December. Chest x-ray also showed ill-defined, patchy parenchymal opacity which is masslike at the right perihilar region. There are also hazy interstitial opacities in the right lung base. There is no evidence of pleural effusion or pneumothorax. Following my exam, Dr. Sin put a central line in the right IJ position and chest x-ray to confirm placement showed the line in place appropriately. ASSESSMENT AND PLAN: 1. Severe sepsis with shock has ensued since the patient was admitted to the ICU and started on pressors. The patient was started on broad-spectrum antibiotics according to the sepsis protocol, and she has received Levaquin, vancomycin, Zosyn, and a dose of clindamycin. She was initially started on Levophed according to Dr. Sin before she left the emergency room, and after her vasopressin, we will continue to support her with fluids and pressors. 2. Acute respiratory failure with hypoxia likely related to pneumonia secondary to non-small cancer. She may have a new tumor on the right which is not present on initial diagnostic imaging done in December. Dr. Calixto plans , according to our recent conversation, repeat CT imaging of chest, start steroids. 3. Acute renal failure. Replace her fluids as tolerated by her cardiac status and monitor her output closely. She has a [place], and she was given a dose of albumin, and I saw her an hour ago in the ICU, and we will have to monitor her closely. PATIENT'S NAME: ANGEL LEIVA [facility] AGE: 71 Y [address] ROOM: [address] [place], [place] [address] LOCATION: [facility] ADMIT DATE: 05/06/2017 History & Physical DISCHARGE DATE: FAMILY PHYSICIAN: Stefano Bain MD ATTENDING PHYSICIAN: PATIENCE SWIFT 4. History of arterial thromboembolism with significantly elevated D-dimer today. She is highly at risk for pulmonary embolism and DVT. She has been off warfarin. We are unable to do a CT PE protocol and do not think there will be much benefit to V/Q scan at this time. I am going to empirically treat her with full-dose Lovenox. Although because of her renal status this would be about 60 mg subcu per day Lovenox, and this will need to be watched very closely if she has a borderline platelet count at this time of 101. 5. Elevated proBNP with unclear history of her coronary artery status with elevated troponin. The patient received an aspirin. She will be on Lovenox. I have ordered an echo which will be done in the morning, and I have notified Dr. Ortiz, kitchen help handyman on-call, and he has agreed to see her for cardiac issues. DISPOSITION: The patient was, as stated in the HPI, hesitant about aggressive intervention but agreed with family to try to treat this acute illness. Depending on the degree of disease progression, we may find on CT the chest and her response to therapy, we may need to choose hospice or palliative care. I have already consulted palliative care nurse, who hopefully will be able to see the patient first thing in the morning. PATIENCE SWIFT MD LM/kristy /[id number]: [id number] T: [id number] HISTORY & PHYSICAL
--- NOTE | ~2017-05-06 | CON ---
PATIENT'S NAME: HAIM LEIVASY Tamanna [facility] AGE: 71 Y [address] ROOM: [address] [address] [place] [facility] [place] DATE: 05/06/2017 Consultation DISCHARGE DATE: 05/09/2017 FAMILY PHYSICIAN: Stefano Bain MD ATTENDING PHYSICIAN: Beverly Bryant DATE OF CONSULTATION: 05/06/2017 HISTORY OF PRESENTING ILLNESS: This is a 71-year-old, female, who was diagnosed with non-small cell carcinoma of the lung on January 16, 2017. She was subsequently found to have brain and bone metastasis. The metastasis of the left femur has been particularly painful, and she has been undergoing radiation too for this metastasis. She has not had any other chemotherapy or other treatments for the lung cancer. She had been turning to a lessened intervention and in fact, she did not want to come to the hospital. Over the past week, she had severe pain in her leg causing increasingly poor appetite, adding to the problem of weight loss she has had. She developed cough and was brought to the emergency department. On arrival, she did have an increased respiratory rate and increased heart rate. She was afebrile and when her labs returned, she had multiple abnormalities including leukopenia, elevated lactate, procalcitonin, elevated BUN and creatinine. The patient had a hypoxic respiratory failure and was started on bilevel ventilation. A chest x-ray reveals a right hilar mass with pneumonia, possibly postobstructive. PAST MEDICAL HISTORY: 1. She had an ileus on January 21, 2017 and was hospitalized and treated for that. 2. She had a history of colon perforation 50 years ago secondary to severe diverticular disease and had a large colon resection at that time. 3. 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 4. She did have an ID with mild coronary artery disease, somewhere in the last several years. 5. Gout. 6. Hypertension. 7. Urinary incontinence. 8. Central canal stenosis at the level of L5-S1, diagnosed in February of 2017. 9. Right thigh hematoma, status post laceration of the right femoral artery. PATIENT'S NAME: ELIZABETH [facility] AGE: 71 Y [address] ROOM: [address] [address] [place] [facility] [place] DATE: 05/06/2017 Consultation DISCHARGE DATE: 05/09/2017 FAMILY PHYSICIAN: Stefano Bain MD ATTENDING PHYSICIAN: Beverly Bryant 10. Hypothyroidism. PAST SURGICAL HISTORY: 1. Jeremías's pouch with diverting colostomy, which was closed in the distant past. 2. Distended celiac artery, on 09/29/2016. 3. Multiple hernia repairs. 4. Status post abdominal surgery. 5. She has had steroid injections to the lumbar spine in February 2017. 6. She has had tubal ligation. 7. Appendectomy. SOCIAL HISTORY: She is for 20 years to Mr. Leiva. She has 3 children from previous marriage, 2 sons and her daughter. She is retired. She smokes 4-5 cigarettes per day, up until a couple of weeks ago she smoked for about 40 years, always less than a pack a day. Her is her medical power of associate attorney. FAMILY HISTORY: Her mother at the age of 82 of a stroke, she had a history of hypertension. Her father at a young age, presumably a myocardial infarction. She had 3 sisters who of COPD, but not cancer. ALLERGIES: NOT TRUE ALLERGIES TO ANTIBIOTICS. SHE DOES HAVE AN ADVERSE REACTION TO CODEINE, WHICH IS SEVERE VOMITING. CURRENT MEDICATIONS: 1. Tylenol 325 mg p.o. 2. Amlodipine 5 mg p.o. b.i.d. 3. Lipitor 80 mg p.o. daily. 4. Decadron 4 mg p.o. twice daily. 5. Colace. 6. Combivent. 7. Levothyroxine. 8. Morphine 1-2 tabs every 4 hours as needed. 9. Prilosec 20 mg p.o. q.h.s. 10. Ditropan XL 24-hour tablet 10 mg p.o. at h.s. 11. Potassium 10 mEq p.o. b.i.d. 12. Senna 2 tabs b.i.d. REVIEW OF SYSTEMS: A 10-point review of systems was done and otherwise negative other than mentioned in the history of presenting illness. PATIENT'S NAME: ANGEL LEIVA [facility] AGE: 71 Y [address] ROOM: [facility] [place], [place] [address] [place] [facility] [place] DATE: 05/06/2017 Consultation DISCHARGE DATE: 05/09/2017 FAMILY PHYSICIAN: Stefano Bain MD ATTENDING PHYSICIAN: Beverly Bryant PHYSICAL EXAMINATION: GENERAL: This is a well-developed, female, who is sitting in chair, in mild to moderate respiratory distress, on bilevel ventilation. HEENT: Normocephalic. Eyes are nonicteric. Pupils are equal and reactive to light and accommodation. HEENT: Normocephalic, atraumatic. Pupils are equal and reactive to light and accommodation. HEENT: Normocephalic and atraumatic. Wet mucous membranes. NECK: Supple. No lymphadenopathy. No jugular venous distention. LUNGS: Decreased air entry on the right side with crackles on the right side. The left side appears to be normal. HEART: S1, S2. No murmurs, rubs, or gallops. ABDOMEN: Soft, nontender. No palpable organs. LOWER EXTREMITIES: No edema, clubbing, or cyanosis. LABORATORY DATA: At the time of evaluation includes ABG with pH 7.3, pCO2 of 36, PO2 of 73, bicarbonate of 18.5, and lactate of 3.5; on repeat 3 hours later, pH was 7.25, CO2 was 38, O2 of 172, bicarb 16.7, and she was on 70% FiO2 with bilevel ventilation. Complete metabolic panel shows sodium 140, potassium 4.9, chloride 112, CO2 of 18, glucose 133, calcium is 9.4, BUN of 89, creatinine 2.9, total protein 6.5, albumin is 2.1, globulin is 4.4, total bilirubin 0.6, alkaline phosphate is 111, AST 723, ALT 756, e-GFR is 16. CPK is 240, CK-MB 6.1, troponin was 0.10; and repeat troponin was 0.219, CK-MB was 6.1, CPK was 312. Her D-dimer was 13.28. Procalcitonin was 12.47. Complete blood count showed a white cell count of 3.3, hemoglobin 12.8, hematocrit 39.2, MCV was 95.1, platelets 101, absolute neutrophil count was 2.46, 74% bands, and 19 lymphocytes. Chest x-ray shows a large right upper lung mass-like structure in the mid right lung, which is new from the CT scan in December. Chest x-ray also showed ill-defined patchy parenchymal opacity at the right perihilar region, there is also hazy interstitial opacity in the right lung base. There is no evidence of pleural effusion. No pneumothorax. IMPRESSION: 1. Hypoxic respiratory failure secondary to right lower lobe pneumonia, possible postobstructive pneumonia. 2. Stage IV non-small cell carcinoma of the lung. 3. Acute kidney injury. 4. Septic shock secondary to pneumonia. RECOMMENDATIONS: At the current point, I do recommend that we start the patient on pressors. We will start with the fluid resuscitation. PATIENT'S NAME: ANGEL LEIVA [facility] AGE: 71 Y [address] ROOM: [place] [address] [place] [facility] [place] DATE: 05/06/2017 Consultation DISCHARGE DATE: 05/09/2017 FAMILY PHYSICIAN: Stefano Bain MD ATTENDING PHYSICIAN: Beverly Bryant At the current point, I would recommend a CT scan of the chest to be obtained to evaluate if the patient has an underlying obstruction to evaluate the possibility of alleviating the patient's symptoms, given the history of the patient with stage IV non-small cell carcinoma, severe septic shock secondary to pneumonia, and acute hypoxic respiratory failure. The patient does not wish to be intubated and with high lactate and high procalcitonin, the patient is critically ill, and with an acute kidney injury and multiorgan failure, her survival rate is very low, it is below 10%, and given her long-term survival is also grim. At the current point, I do not recommend aggressive intervention in terms intubation and mechanical ventilation. I do recommend to start antibiotic including piperacillin, tazobactam, and vancomycin. I will also start linezolid. I have talked to the family about the goals of care. I did not wish to be aggressive with treatment, they do want to proceed with intubation. I agree with pressor support and norepinephrine. I will probably add epinephrine too. After discussion with the family and goals of care were discussed, we will proceed with further evaluation. Thank you for allowing me to participate in the care of this patient. I have spent 65 minutes of critical care time in direct care of this patient. MD INNA MEDINA/kristy /[id number] d: 05/14/179 t: 05/17/17 0900, CONSULTATION REPORT
--- NOTE | ~2017-05-06 | CON ---
PATIENT'S NAME: ANGEL JOHNSON [facility] AGE: 71 Y [address] ROOM: 223 [place], [place] [address] [place] [facility] [place] DATE: 05/06/2017 Consultation DISCHARGE DATE: FAMILY PHYSICIAN: Stefano Bain MD ATTENDING PHYSICIAN: PATIENCE BRYANT DATE OF CONSULTATION: 05/07/2017 REFERRING PHYSICIAN: Patience Bryant MD LOCATION: 15 ICU. REASON FOR CONSULTATION: This is a palliative care referral for end of life and goals of care. 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 The metastasis to the bone was in the left femur and has been in particular painful. She has had radiation for her pain. Pain had become more severe over the last week, decreased appetite, increasing weakness and cough, and very short of breath. The patient had not wanted to come into the hospital, had been declining. had been her caregiver and her daughterAkiko came in and she was taken to the hospital for a diagnosis of acute sepsis. The patient currently denies any pain after morphine was given, is short of breath, but alert and oriented. Family at bedside. The patient is wanting to take off the BiPAP mask. No nausea or vomiting. She is n.p.o. 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 Bates and had a catheterization several years ago showing nonobstructive cardiac disease, gout, hypertension, urinary incontinence, central canal stenosis at the L5 and S1, diagnosed in February of 2017, right thigh hematoma status post laceration of the right femoral artery. PAST SURGICAL HISTORY: Jeremías's pouch with diverting colostomy which was closed in the distant past, stent to the celiac artery on 09/29/2016, multiple hernia repair, status post abdominal surgery, steroid injection for the lumbar spine in February of 2017, and a tubal ligation, appendectomy. SOCIAL HISTORY: PATIENT'S NAME: HAIM JOHNSONSY L [facility] AGE: 71 Y [address] ROOM: [id number] [place], [place] [address] LOCATION: [facility] [place] DATE: 05/06/2017 Consultation DISCHARGE DATE: FAMILY PHYSICIAN: Stefano Bain MD ATTENDING PHYSICIAN: PATIENCE BRYANT She has 3 grown children, 2 sons and a daughter from previous marriage. One son, Dillan lives with the family. Daughter and other son live is [place]. She is retired, smoked 4 to 5 cigarettes a day up until couple years ago. Smoked for 40 years. 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 FAMILY HISTORY: Mother of a stroke at the age of 82, history of stroke and hypertension. Father at a young age presumably [place]. Three sisters who with COPD but not cancer. ALLERGIES: NO KNOWN ALLERGIES TO ANTIBIOTICS. CODEINE MAKES HER VOMIT. HOME MEDICATIONS: 1. Tylenol 325 mg 2 tablets every 4 hours p.r.n. pain. 2. Amlodipine 5 mg b.i.d. 3. Lipitor 80 mg p.o. daily. 4. Decadron 40 mg p.o. twice daily. 5. Colace 2 caps b.i.d. 6. Neurontin 300 mg nightly but did not tolerate due to altered mental status. 7. HydroDIURIL 25 mg daily. 8. Combivent inhalation 4 times a day p.r.n. dyspnea. 9. Levothyroxine 88 mcg every bedtime. 10. Morphine 1 to 2 tabs immediate release every 4 hours p.r.n. breakthrough pain. 11. Prilosec 20 mg p.o. at bedtime. 12. Ditropan XL 10 mg at bedtime. 13. Potassium 10 mEq b.i.d. 14. Senna 2 tabs b.i.d. REVIEW OF SYSTEMS: A complete review of systems was done and is negative except as mentioned in HPI. PHYSICAL EXAMINATION: VITAL SIGNS: Temperature 98, pulse 69, respirations 23, blood pressure 128/64. She is 5 feet 1 inch, and weighs 132 pounds with a BMI of 25. On last admission she weighed 142 with a BMI of 26.09. GENERAL: This is a 71-year-old, frail, female, well developed, in some respiratory distress. HEENT: Head: Normocephalic and atraumatic. Sclerae nonicteric. Conjunctivae pale, pink. Mouth is pink and dry. BiPAP is on. NECK: No lymphadenopathy or thyromegaly. LUNGS: Sounds coarse bilaterally. Respirations are labored in the upper 20s, PATIENT'S NAME: ANGEL JOHNSON [facility] AGE: 71 Y [address] ROOM: [place] [address] LOCATION: [facility] [place] DATE: 05/06/2017 Consultation DISCHARGE DATE: FAMILY PHYSICIAN: Stefano Bain MD ATTENDING PHYSICIAN: PATIENCE BRYANT BiPAP at 40%. CARDIOVASCULAR: Regular rate and rhythm. No murmurs or bruits. No lower extremity edema. ABDOMEN: Slightly firm. Normal bowel sounds. No hepatosplenomegaly. EXTREMITIES: No cyanosis or deformities. SKIN: Petechiae over arms, lower or upper extremities. EXTREMITIES: No cyanosis or deformities. NEUROLOGICAL: Alert to time and place and family. Palliative performance scale is about 10%, totally bed-bound, unable do any activity, total care, mouth care only. Drowsy but alert. IMPRESSION: Dyspnea, pain in left leg, severe fatigue. PLAN: Met with the patient; her , Francois; and daughter, Akiko and Dr. Schneider explained her chronic condition, lung cancer, advanced with metastasis to the brain and the bone, sepsis, and overall poor prognosis. DISCUSSION OF GOALS OF CARE: The patient states she just wants to be made comfortable. Take the mask off and drink some Coke and see her dog, Ventura. Clarified that she will eventually pass away. The patient states that she is ready to go to critical access hospital. Spiritual needs, Corazon Harp was in to see patient. Denies any other spiritual needs. CODE STATUS AND ADVANCE DIRECTIVE: The patient is do not resuscitate/do not intubate. No advanced directive is on chart. RECOMMENDATIONS: Comfort care order set. Pain, morphine 1 to 2 mg p.r.n. every hour; dyspnea, morphine 1 to 2 mg p.r.n. every hour; was on MS Contin 30 mg b.i.d.; may need to start a LIVE OUT NANNY if the patient is unable to swallow. Morphine LIVE OUT NANNY at 1 mg an hour, continuous 1 mg bolus every 10 minutes lockout. Answered all questions and concerns. Education given on goals of care, end of life, signs and symptoms, etc. Emotional support given to the patient and family. Thank you for allowing me to assist this patient and family. Total time was 60 minutes with 50 minutes for counseling and coordination of care. GRETA GRIFFIN NP FOR RODERICK SMITH MD PATIENT'S NAME: ANGEL JOHNSON [facility] AGE: 71 Y [address] ROOM: [place] [address] LOCATION: [facility] [place]MIT DATE: 05/06/2017 Consultation DISCHARGE DATE: FAMILY PHYSICIAN: Stefano Bain MD ATTENDING PHYSICIAN: PATIENCE BRYANT/kristy /[id number] d: 05/07/17 2316 t: 05/13/17 1558, CONSULTATION REPORT
[~2017-05-06 15:01] MED LIST changes: -DECADRON4 MG PO; -MORPHINE 15MG I15 MG PO; -MS CONTIN30 MG PO; -NEURONTIN300 MG PO; -SENNA LAXATIVE1 EACH PO
[2017-05-06 15:26] LABS: BICARBONATE 18.5 mmol/L (18.0-23.0); LACTATE 3.5 mEq/L (0.50-1.60); PCO2 36 mmHg (35-45); PO2 73 mmHg (80-90)
[2017-05-06 15:33] LABS: HEMATOCRIT 39.2 % (33.0-46.0); HEMOGLOBIN 12.8 g/dL (10.0-15.0); MCH 31.1 pg (27.0-34.0); MCHC 32.7 gm/dL (32.0-36.5); MCV 95.1 fl (83.0-98.0); MPV 10.8 fl (9.4-12.4); PLATELET COUNT 101 K/uL (150-450); RBC 4.12 M/uL (3.50-5.50); WBC 3.2 K/uL (4.0-11.0)
[2017-05-06 15:37] LABS: INR - (THERAPEUTIC) 0.97 (0.92-1.07); PROTIME 10.2 SECONDS (9.8-11.4); PTT 28 SECONDS (25-32)
[2017-05-06 15:48] LABS: ALBUMIN 2.1 gm/dL (3.5-5.0); ANION GAP 14.9 (10.0-19.0); CALCIUM 9.4 mg/dL (8.5-10.5); CREATININE 2.9 mg/dL (0.5-1.1); POTASSIUM 4.9 mMol/L (3.7-5.1); TOTAL PROTEIN 6.5 g/dL (6.0-8.4)
[2017-05-06 15:51] LABS: TOTAL BILIRUBIN 0.6 mg/dL (0.0-1.5)
[2017-05-06 16:13] LABS: BANDED NEUTROPHIL # 0.6 K/uL (0.0-0.1); BANDED NEUTROPHILS % 19 %; LYMPHOCYTE # 0.1 K/uL (0.8-4.0); LYMPHOCYTE % 3 %; MONOCYTE # 0.1 K/uL (0.0-1.0); SEGMENTED NEUTROPHIL # 2.4 K/uL (1.8-7.8); SEGMENTED NEUTROPHIL % 74 %
[2017-05-06 18:18] LABS: BICARBONATE 16.7 mmol/L (18.0-23.0); PCO2 38 mmHg (35-45)
[2017-05-06 18:19] LABS: PO2 172 mmHg (80-90)
[2017-05-06 19:51] LABS: BLOOD URINE 10 /UL (NEGATIVE); COLOR URINE AMBER (YELLOW); GLUCOSE URINE NEGATIVE (NEGATIVE); KETONE URINE NEGATIVE (NEGATIVE); LEUKOCYTES URINE 25 /UL (NEGATIVE); NITRITE URINE NEGATIVE (NEGATIVE); PROTEIN URINE 30 mg/dL (NEGATIVE); TURBIDITY URINE 2+ (CLEAR); UROBILINOGEN URINE 1 mg/dL (NORMAL)
[2017-05-06 20:05] LABS: EPITHELIAL URINE 0-2 #/HPF (NEGATIVE)
[2017-05-06 20:06] LABS: RBC URINE 0-2 #/HPF (NEGATIVE); WBC URINE 0-2 #/HPF (NEGATIVE)
[2017-05-06 20:08] LABS: AMORPHOUS URINE 2+ (NEGATIVE)
[2017-05-06 20:22] LABS: BACTERIA URINE NEGATIVE (NEGATIVE)
[2017-05-06 20:24] LABS: GRANULAR CASTS URINE RARE #/LPF (NEGATIVE)
[2017-05-06] MEDS ORDERED: MS CONTIN30 MG PO (20:41)
[2017-05-06] MEDS ORDERED: MORPHINE 15MG I15 MG PO (20:42)
[2017-05-06] MEDS ORDERED: LIPITOR80 MG PO (20:44)
[2017-05-06] MEDS ORDERED: COLACE100 MG PO (20:45)
[2017-05-06] MEDS ORDERED: NEURONTIN300 MG PO (20:45)
[2017-05-06] MEDS ORDERED: DECADRON4 MG PO (20:46)
[2017-05-06] MEDS ORDERED: SENNA LAXATIVE1 EACH PO (20:48)
--- NOTE | 2017-05-07 04:15 | NUR ---
Significant Event: Patient admitted at 1855. Neurologically intact. Vaso at 0.04 units/min and levo at 0.2 mcg/kg/min. Bipap 40%. Lungs slightly coarse to coarse throughout. Desats quickly when mask is off. SOB, labored breathing. NPO. Hypoactive bowel sounds. No BM. Middleton [id number] ml urine. Low UOP during period of hypotension, but has rebounded. NS at 175ml/hr. Follow up: Wean pressors and Fi02. Echo and CT in am
[2017-05-07 05:18] LABS: CALCIUM 8.4 mg/dL (8.5-10.5); CREATININE 2.3 mg/dL (0.5-1.1); POTASSIUM 4.6 mMol/L (3.7-5.1); TOTAL PROTEIN 5.5 g/dL (6.0-8.4)
[2017-05-07 05:21] LABS: ALBUMIN 1.9 gm/dL (3.5-5.0); ANION GAP 14.6 (10.0-19.0)
[2017-05-07 05:28] LABS: HEMATOCRIT 32.9 % (33.0-46.0); HEMOGLOBIN 10.8 g/dL (10.0-15.0); MCH 32.1 pg (27.0-34.0); MCHC 32.8 gm/dL (32.0-36.5); MCV 97.9 fl (83.0-98.0); MPV 10.8 fl (9.4-12.4); RBC 3.36 M/uL (3.50-5.50); RDW-CV 16.3 % (11.9-14.6); WBC 3.3 K/uL (4.0-11.0)
[2017-05-07 05:30] LABS: PLATELET COUNT 60 K/uL (150-450)
[2017-05-07 06:29] LABS: ABSOLUTE NEUTROPHIL CT (ANC) 2.9 K/uL (1.8-7.8); BANDED NEUTROPHIL # 0.4 K/uL (0.0-0.1); BANDED NEUTROPHILS % 13 %; LYMPHOCYTE # 0.1 K/uL (0.8-4.0); LYMPHOCYTE % 2 %; MONOCYTE # 0.3 K/uL (0.0-1.0); SEGMENTED NEUTROPHIL # 2.5 K/uL (1.8-7.8); SEGMENTED NEUTROPHIL % 75 %
--- NOTE | 2017-05-07 12:34 | NUR ---
SignificaNt Event:PT IS AAOX3. NO C/O NUMBNESS OR TINGLING. WAS ON BIPAP AND LEVOPHED AND VASOPRESSIN. AT 1015 FAMILY WAS HERE AND MADE THE DECISION WITH PATIENT TO GO COMFORT CARES. ON 3L NC NOW. ALL MEDS DC EXCEPT THOSE PER CC ORDERS. GAVE MORPHINE X2 WITH RELIEF NOTED IN BREATHING. GAVE RUBINOL. LUNG SOUNDS WERE COARSE. LAO DRAINING. PT WAS COMFORTABLE PRIOR TO TX OVER TO ROOM 3223. AND DAUGHTER AT BEDSIDE. REPORT GIVEN TO BERRY ON [facility] Follow up:
--- NOTE | 2017-05-07 14:40 | NUR ---
SCREENED D/T (+)MST. PT MADE COMFORT MEASURES. PT NOT APPROPRIATE FOR NUTRITION INTERVENTIONS. WILL ASSIST NEEDED.
--- NOTE | 2017-05-07 17:33 | NUR ---
PT. TRANSFERRED TO THIS FLOOR AT 1300. ALERT BUT VERY SOB AND COARSE LUNG SOUNDS. SKIN IS DUSKY WITH MAYA COMPLECTION. ON COMFORT CARES. 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 FAMILY HERE. ALLERGIC TO CODEINE. SMOKER 15 YEARS. NON-SMALL CELL LUNG CANCER WITH METS TO BRAIN, LYMPH NODES, FEMUR, LIVER. 3L PER NC. HAS SMALL OPEN AREAS ON BUTTOCKS. RIGHT IJ TRIPLE LUMEN AND LAC, R HAND IV. LAO CATH WITH JUAN JOSÉ URINE.650MLS OUTPUT. DIET TOLERATED. NO STOOL TODAY.
--- NOTE | 2017-05-07 17:38 | NUR ---
Significant Event:PT. TRANSFERRED HERE AT 1300. ALERT BUT SOB AND C/O GENERALIZED PAIN WHEN MOVED. REPOSITIONED Q2 HOURS. BIOMEDICAL SCIENTIST MORPHINE STARTED WITH 1-10-1. SEEMS MORE COMFORTABLE AFTER BIOMEDICAL SCIENTIST STARTED. LUNG SOUNDS COARSE. FAMILY HERE. RIGHT IJ TRIPLE LUMEN, LAC AND RIGHT HAND IV S/L'D. LAO JUAN JOSÉ URINE. LINDSAY. Follow up:
--- NOTE | 2017-05-08 18:30 | NUR ---
Significant Event: Patient has had family in room most of day. Patient for the most part unresponsive but does cry out when repositioned. O2 at 1 liter/nasal cannula. Middleton intact/patent. Turned throughout the day, but not every 2 hours per family request. Did apply aloe to bottom when patient repositioned. Morphine FINANCE BROKER currently infusing into right jugular IV. Morpine at continuous dose of 2.5 mg/hour, bolus dose of 1 mg and lockout of 10 minutes. Robinal scheduled [id number], and ativan given twice--last at 1608. Follow up: Continue to monitor.
--- NOTE | 2017-05-09 05:05 | NUR ---
Significant Event:Pt continues to be comfort cares.handicapped teacher pump continues to be on,with continous dose of 2.5mg demand dose of 1mg with 10min lockout. pt resp labored,abdominal breathing, audible secretions. pt color very dusky, does not respond to verbal stimuli. does moan out with movement, repsistioned as family allows. does have blister to buttocks so enouraged to reposistion q2h. pt has jugular iv to handicapped teacher pump. also noted to have saline lock iv to right and and left forearm. elizabeth cath also in place with dark yellow/brown urine output. lung sounds coarse througout, on 1.5L o2 nasal cannula however sats jump from 70-80's. family in room at all times during night. Follow up:
--- NOTE | 2017-05-09 11:30 | NUR ---
Patient unresponsive during bedside report this morning with labored respirations. Daughter at bedside. At 0720 the patients daughter had the nurse call light on. When I went into the room patient had agonal respirations. Daughter called the patients . Patient at 0730. Dr Shahid notified and Dr Bain here at 0745. Family was in the room until about 1115. IV's and elizabeth dc'd and patient taken to the [facility] by transport at 1210.
--- NOTE | 2017-05-09 12:00 | NUR ---
I have reviewed and agree with charting done by Mari Abernathy, [employer] student nurse.
== END 2017-05-09 07:30 | disposition expired | DRG 871 ==
LOC: GMED 15:01 → GICU 18:28 → GMSU 05-07 12:38
PROVIDERS: Emergency Medicine; ADMIT Internal Medicine
DX: A41.50 Gram-negative sepsis, unspecified (principal); J18.9 Pneumonia, unspecified organism; J96.01 Acute respiratory failure with hypoxia; I21.4 Non-ST elevation (NSTEMI) myocardial infarction; R65.21 Severe sepsis with septic shock; I13.0 Hypertensive heart and chronic kidney disease with heart failure and stage 1 through stage 4 chronic kidney disease, or unspecified chronic kidney disease; C79.31 Secondary malignant neoplasm of brain; N17.9 Acute kidney failure, unspecified; Z51.5 Encounter for palliative care; K57.92 Diverticulitis of intestine, part unspecified, without perforation or abscess without bleeding; I50.30 Unspecified diastolic (congestive) heart failure; C79.51 Secondary malignant neoplasm of bone; C34.90 Malignant neoplasm of unspecified part of unspecified bronchus or lung; D69.6 Thrombocytopenia, unspecified; B02.9 Zoster without complications; Z66 Do not resuscitate; D72.819 Decreased white blood cell count, unspecified; M19.90 Unspecified osteoarthritis, unspecified site; E03.9 Hypothyroidism, unspecified; I73.9 Peripheral vascular disease, unspecified; N18.9 Chronic kidney disease, unspecified
CPT/HCPCS: C9113; J1644; J1650; J1956; J2060; J2270; J2543; J2930; J3010; J3370; J7030; J7040; J7050; J7060; P9047

== ENCOUNTER → 2017-05-06 | Outpatient (CLI) | payer MEDICARE, OTHER | END | disposition disaster alternative care site (69) | LOC: GAMB 18:00 | DX: R06.9 Unspecified abnormalities of breathing (principal); C78.00 Secondary malignant neoplasm of unspecified lung; C80.1 Malignant (primary) neoplasm, unspecified; R06.02 Shortness of breath; R62.7 Adult failure to thrive; Z79.899 Other long term (current) drug therapy; Z79.52 Long term (current) use of systemic steroids; Z88.5 Allergy status to narcotic agent | CPT/HCPCS: A0422; A0425; A0427 ==